=== PATIENT | male | born 1975 | race African-American/Black ===

== ENCOUNTER 2021-10-15 06:32 | Inpatient (IN) ==
--- NOTE | 2021-10-15 06:38 | Emergency Department Note ---
Impression & Plan COVID-19, Pneumonia, Acute dyspnea ED Provider Note NAME: JERAMY PARISH AGE: 46 SEX: M : 1975 ARRIVES VIA: Ambulance INFORMANT: [Patient][, ] ED PROVIDER(S): [Valentin Cordero MD] Chief Complaint: Shortness of breath HPI: Patient presents due to concern for shortness of breath. The patient was camping at the [facility]. The patient is currently undomiciled but had lived on [address] [place] [address] in [place] prior. Patient states that he does have a history of interstitial lung disease type 2 diabetes and hypertension. Remote history of a breast tissue surgery as well as ankle surgery but not recently. The patient has had productive cough and states there is scant blood in the sputum. No blood thinner use. Patient [place] any trauma. Patient does complain of chest pain that just began to the central chest that is nonradiating. Patient has noticed some leg swelling. Patient denies any history of heart failure. The patient is unsure as to the medications he takes. Patient denies any fevers or chills but did have a temp of 37.7 upon presentation. BLS reported that the patient was at 67% on room air. He was placed on a nonrebreather. ROS: See HPI for pertinent positives and negatives. A total of 10 systems were reviewed and otherwise negative. Past medical history: See below Surgical history: See below Social history: See below Physical Exam: GENERAL: NAD, non-toxic. EYE EXAM: Normal conjunctiva. PERRL, no anisocoria and EOM's grossly intact w/o pain. NECK: Supple, no nuchal rigidity, no adenopathy, non-tender. No signs of meningismus. FROM of the neck with good chin to chest and neck extension. No stridor. LUNGS: Crackles throughout. Tachypnea noted. HEART: Tachycardic and regular, no MRG. ABDOMEN: Abdomen soft, non-tender, normo-active bowel sounds, no masses, no rebound or guarding. BACK: No CVA TTP. SKIN: No rashes and no bruising. UPPER EXTREMITIES: Upper extremities are grossly normal. LOWER EXTREMITIES: Grossly normal, 2+ symmetric lower extremity edema bilaterally. NEURO EXAM: A&O x3, cranial nerves II-XII grossly intact, normal speech, moves all 4 extremities. Differential diagnoses: Reactive airway disease, pneumonia, pneumothorax, COPD, CHF, infections, cardiac ischemia, pulmonary embolism, musculoskeletal, gastrointestinal, as well as other pathologies. Course: Patient was seen and evaluated the bedside. Full history physical exam was p erformed. EKG interpreted by me Sinus tachycardia, rate 106, normal intervals, normal axis, no obvious ST elevations or T WI. Imaging Studies: See Below Cardiac monitoring: An order was placed for continuous cardiac monitoring. The monitor shows a rate of 102 with tachycardic and regular rhythm. MDM: Patient presented due to concern for shortness of breath in the setting of being undomiciled low-grade temperature with increased work of breathing. Blood work is obtained along with sepsis work-up. The patient may have an element of volume overload so the patient was not ordered IV fluids and was placed on BiPAP. The patient does look improved on the BiPAP. The patient was ordered an a dditional Xopenex treatment. The patient did receive empiric antibiotics as a precaution. White count of 12 with a normal H&H and platelet count. Kidney function was unremarkable with mild hypokalemia. The patient was ordered potassium for replacement. Mag is normal but patient's magnesium was also ordered. VBG does not show any acute hypercarbia. The patient's lactate is normal. Troponin and BNP are not elevated. The patient did appear slightly volume overloaded with possible volume congestion seen on initial chest x-ray. The patient did receive Nitropaste and Lasix. Patient is COVID-positive. The patient was ordered [address] shows no obvious PE. The patient does have dilatation of the central pulmonary arteries. Patient does have pronounced trunk you bronchial wall thickening. Patient does have moderate right lower lobe airspace opacity which favors a pneumonia. Patient also does have associated bronchiectasis. I did speak with the on-call hospitalist Dr. Jackson and the patient was admitted to the medicine service. I did also speak with the on-call lens and frames prescription clerk Dr. Correa. Patient was admitted to the medicine service. Critical Care: I have personally spent 95 minutes of critical care time in direct management of this patient. This includes bedside care, interpretation of diagnostic studies, and testing, discussion with consultants, patient, and family members, and other require inpatient management activities. This 95 minutes is in excess of all separately billable procedures. Past Med/Surg History Medical History DM2 (diabetes mellitus, type 2) H/O: HTN (hypertension) ILD (interstitial lung disease) Surgical History History of ankle surgery Social History Smoking Status: Current every day smoker Tobacco Type: Cigarettes Hx Alcohol Use: No Hx Substance Use: No Preferred Language: Portuguese Feels Safe at Home: Yes Home Meds Home Medications Medication Instructions Recorded Confirmed albuterol sulfate 90 mcg/actuation 2 inhalation PRN Wheezing 10/15/21 aerosol inhaler aripiprazole 10 mg tablet mg 10/15/21 atorvastatin 40 mg tablet 10 mg 10/15/21 chlorthalidone 50 mg tablet 50 mg 10/15/21 escitalopram oxalate 10 mg tablet 10 mg 10/15/21 fluticasone 250 mcg-salmeterol 50 inhalation 10/15/21 mcg/dose blistr powdr for inhalation pantoprazole 40 mg tablet,delayed 40 mg PO 10/15/21 release Results & Data (ED) Vital Signs Vital Signs - 24 hr 10/15/21 06:32 10/15/21 06:32 10/15/21 06:46 Temperature 37.7 C H Temperature Source Oral Pulse Rate 100 H Pulse Rate [Right Apical] Respiratory Rate 32 H Respiratory Effort / Characteristics Labored Labored Respiratory Depth Respiratory Pattern Blood Pressure 152/125 H Blood Pressure [Left Arm] Blood Pressure Mean 134 Blood Pressure Mean [Left Arm] Pulse Oximetry 95 95 Oxygen Delivery Method Room Air Room Air Non-rebreather Room Air Fraction of Inspired Oxygen Sepsis New/Unexplained Change in Mental Status N/A Sepsis Action Taken by Nursing No Action Required 10/15/21 06:54 10/15/21 06:56 10/15/21 07:28 Temperature Temperature Source Pulse Rate 100 H Pulse Rate [Right Apical] 100 H 102 H Respiratory Rate 27 H 27 H 26 H Respiratory Effort / Characteristics Spontaneous Short of Breath Spontaneous Spontaneous Short of Breath Respiratory Depth Normal Respiratory Pattern Tachypnea Blood Pressure Blood Pressure [Left Arm] Blood Pressure Mean Blood Pressure Mean [Left Arm] Pulse Oximetry 97 97 99 Oxygen Delivery Method BiPAP BiPAP Fraction of Inspired Oxygen 30 30 30 Sepsis New/Unexplained Change in Mental Status Sepsis Action Taken by Nursing 10/15/21 07:39 10/15/21 07:39 10/15/21 09:00 Temperature Temperature Source Pulse Rate Pulse Rate [Right Apical] 97 H 89 Respiratory Rate 18 16 Respiratory Effort / Characteristics Respiratory Depth Respiratory Pattern Blood Pressure Blood Pressure [Left Arm] 154/117 H 151/105 H Blood Pressure Mean Blood Pressure Mean [Left Arm] 129 120 Pulse Oximetry 98 97 Oxygen Delivery Method BiPAP BiPAP Fraction of Inspired Oxygen Sepsis New/Unexplained Change in Mental Status Sepsis Action Taken by Halfway Medications Current Medication List: was personally reviewed by me Laboratory Data Attestation: I reviewed the patient's lab results. Result diagrams: 10/15/21 06:10 10/15/21 06:10 Lab Results 10/15/21 10/15/21 10/15/21 Range/Units 06:10 06:10 06:10 WBC 12.12 H (4.8-10.8) K/ul RBC 5.03 (4.63-6.08) M/uL Hgb 14.6 (14.0-18.0) g/dl Hct 44.7 (40.1-51.0) % MCV 88.9 (80.0-100.0) fL MCH 29.0 (25.0-34.0) pg MCHC 32.7 (32.0-36.0) g/dL RDW Std Deviation 49.7 H (36.4-46.3) fL RDW Coeff of Brock 15.1 H (11.5-14.5) % Plt Count 234 (130-400) K/uL MPV 12.6 H (9.4-12.4) fL Immature Gran % (Auto) 0.4 % Neut % (Auto) 76.8 % Lymph % (Auto) 9.8 % [place] % (Auto) 11.6 % Eos % (Auto) 0.4 % Baso % (Auto) 1.0 % Neut # (Auto) 9.31 H (1.4-6.5) K/uL Lymph # (Auto) 1.19 L (1.2-3.4) K/uL [place] # (Auto) 1.40 H (0.24-0.82) K/uL Eos # (Auto) 0.05 (0-0.50) K/uL Baso # (Auto) 0.12 (0-0.2) K/uL Immature Gran # (Auto) 0.05 H (0.00-0.02) K/uL PT 11.8 (9.0-12.0) Seconds INR 1.1 (0.9-1.1) APTT 29.8 (21.0-31.0) Seconds PTT Ratio 1.1 VBG pH (7.36-7.41) VBG pCO2 (38-50) mmHg VBG pO2 mmHg VBG HCO3 mmol/L VBG O2 Saturation % VBG Base Excess mEq/L Sodium 135 L (136-145) mmol/L Potassium 3.3 L (3.5-5.1) mmol/L Chloride 101 (98-107) mmol/L Carbon Dioxide 26 (21-32) mmol/L Anion Gap 8 (3-11) BUN 9 (6-23) mg/dl Creatinine 1.09 (0.6-1.4) mg/dl Est Cr Clr Drug Dosing 99.9 ml/min Est GFR ( Amer) 93.8 ml/min Est GFR (Non-Af Amer) 81.0 ml/min BUN/Creatinine Ratio 8.3 L (10-20) Glucose 142 H (70-99(Fasting)) mg/dl Lactate (0.4-2.0) mmol/L Calcium 8.5 (8.5-10.1) mg/dl Magnesium 1.7 (1.7-2.4) mg/dl Total Bilirubin 0.6 (0.2-1.0) mg/dl AST 20 (13-39) U/L ALT 16 (7-52) U/L Alkaline Phosphatase 104 (34-104) U/L Troponin I High Sens 14.2 (0-20) pg/ml B-Natriuretic Peptide (0-100) pg/ml Total Protein 7.3 (6.0-8.3) gm/dl Albumin 3.9 (3.4-5.0) gm/dl Globulin 3.4 (2.5-4.0) gm/dl Albumin/Globulin Ratio 1.1 (0.9-2) Urine Color Urine Appearance (Clear) Urine pH (4.5-7.5) Ur Specific [place] (1.000-1.030) Urine Protein (Negative) Urine Glucose (UA) (Negative) Urine Ketones (Negative) Urine Blood (Negative) Urine Nitrite (Negative) Urine Bilirubin (Negative) Urine Urobilinogen (Negative) Ur Leukocyte Esterase (Negative) Urine WBC (Auto) (0-5) /hpf Urine RBC (Auto) (0-4) /hpf U Hyaline Cast (Auto) (0-5) /lpf U Epithel Cells (Auto) (0-5) /lpf Urine Bacteria (Auto) (Negative) Nasal Screen MRSA (PCR) (Negative) SARS-CoV-2, RNA, NAAT (NEGATIVE) 10/15/21 10/15/21 10/15/21 Range/Units 06:50 07:18 07:18 WBC (4.8-10.8) K/ul RBC (4.63-6.08) M/uL Hgb (14.0-18.0) g/dl Hct (40.1-51.0) % MCV (80.0-100.0) fL MCH (25.0-34.0) pg MCHC (32.0-36.0) g/dL RDW Std Deviation (36.4-46.3) fL RDW Coeff of Brock (11.5-14.5) % Plt Count (130-400) K/uL MPV (9.4-12.4) fL Immature Gran % (Auto) % Neut % (Auto) % Lymph % (Auto) % [place] % (Auto) % Eos % (Auto) % Baso % (Auto) % Neut # (Auto) (1.4-6.5) K/uL Lymph # (Auto) (1.2-3.4) K/uL [place] # (Auto) (0.24-0.82) K/uL Eos # (Auto) (0-0.50) K/uL Baso # (Auto) (0-0.2) K/uL Immature Gran # (Auto) (0.00-0.02) K/uL PT (9.0-12.0) Seconds INR (0.9-1.1) APTT (21.0-31.0) Seconds PTT Ratio VBG pH 7.40 (7.36-7.41) VBG pCO2 48 (38-50) mmHg VBG pO2 58 mmHg VBG HCO3 30 mmol/L VBG O2 Saturation 89.9 % VBG Base Excess 4.0 mEq/L Sodium (136-145) mmol/L Potassium (3.5-5.1) mmol/L Chloride (98-107) mmol/L Carbon Dioxide (21-32) mmol/L Anion Gap (3-11) BUN (6-23) mg/dl Creatinine (0.6-1.4) mg/dl Est Cr Clr Drug Dosing ml/min Est GFR ( Amer) ml/min Est GFR (Non-Af Amer) ml/min BUN/Creatinine Ratio (10-20) Glucose (70-99(Fasting)) mg/dl Lactate (0.4-2.0) mmol/L Calcium (8.5-10.1) mg/dl Magnesium (1.7-2.4) mg/dl Total Bilirubin (0.2-1.0) mg/dl AST (13-39) U/L ALT (7-52) U/L Alkaline Phosphatase (34-104) U/L Troponin I High Sens (0-20) pg/ml B-Natriuretic Peptide 85 (0-100) pg/ml Total Protein (6.0-8.3) gm/dl Albumin (3.4-5.0) gm/dl Globulin (2.5-4.0) gm/dl Albumin/Globulin Ratio (0.9-2) Urine Color Urine Appearance (Clear) Urine pH (4.5-7.5) Ur Specific [place] (1.000-1.030) Urine Protein (Negative) Urine Glucose (UA) (Negative) Urine Ketones (Negative) Urine Blood (Negative) Urine Nitrite (Negative) Urine Bilirubin (Negative) Urine Urobilinogen (Negative) Ur Leukocyte Esterase (Negative) Urine WBC (Auto) (0-5) /hpf Urine RBC (Auto) (0-4) /hpf U Hyaline Cast (Auto) (0-5) /lpf U Epithel Cells (Auto) (0-5) /lpf Urine Bacteria (Auto) (Negative) Nasal Screen MRSA (PCR) (Negative) SARS-CoV-2, RNA, NAAT POSITIVE A* (NEGATIVE) 10/15/21 10/15/21 10/15/21 Range/Units 07:18 07:30 Unknown WBC (4.8-10.8) K/ul RBC (4.63-6.08) M/uL Hgb (14.0-18.0) g/dl Hct (40.1-51.0) % MCV (80.0-100.0) fL MCH (25.0-34.0) pg MCHC (32.0-36.0) g/dL RDW Std Deviation (36.4-46.3) fL RDW Coeff of Brock (11.5-14.5) % Plt Count (130-400) K/uL MPV (9.4-12.4) fL Immature Gran % (Auto) % Neut % (Auto) % Lymph % (Auto) % [place] % (Auto) % Eos % (Auto) % Baso % (Auto) % Neut # (Auto) (1.4-6.5) K/uL Lymph # (Auto) (1.2-3.4) K/uL [place] # (Auto) (0.24-0.82) K/uL Eos # (Auto) (0-0.50) K/uL Baso # (Auto) (0-0.2) K/uL Immature Gran # (Auto) (0.00-0.02) K/uL PT (9.0-12.0) Seconds INR (0.9-1.1) APTT (21.0-31.0) Seconds PTT Ratio VBG pH (7.36-7.41) VBG pCO2 (38-50) mmHg VBG pO2 mmHg VBG HCO3 mmol/L VBG O2 Saturation % VBG Base Excess mEq/L Sodium (136-145) mmol/L Potassium (3.5-5.1) mmol/L Chloride (98-107) mmol/L Carbon Dioxide (21-32) mmol/L Anion Gap (3-11) BUN (6-23) mg/dl Creatinine (0.6-1.4) mg/dl Est Cr Clr Drug Dosing ml/min Est GFR ( Amer) ml/min Est GFR (Non-Af Amer) ml/min BUN/Creatinine Ratio (10-20) Glucose (70-99(Fasting)) mg/dl Lactate 0.7 (0.4-2.0) mmol/L Calcium (8.5-10.1) mg/dl Magnesium (1.7-2.4) mg/dl Total Bilirubin (0.2-1.0) mg/dl AST (13-39) U/L ALT (7-52) U/L Alkaline Phosphatase (34-104) U/L Troponin I High Sens (0-20) pg/ml B-Natriuretic Peptide (0-100) pg/ml Total Protein (6.0-8.3) gm/dl Albumin (3.4-5.0) gm/dl Globulin (2.5-4.0) gm/dl Albumin/Globulin Ratio (0.9-2) Urine Color Yellow Urine Appearance Clear (Clear) Urine pH 5.5 (4.5-7.5) Ur Specific [place] 1.022 (1.000-1.030) Urine Protein 2+ H (Negative) Urine Glucose (UA) Negative (Negative) Urine Ketones Negative (Negative) Urine Blood Negative (Negative) Urine Nitrite Negative (Negative) Urine Bilirubin Negative (Negative) Urine Urobilinogen Negative (Negative) Ur Leukocyte Esterase Negative (Negative) Urine WBC (Auto) 1-5 (0-5) /hpf Urine RBC (Auto) 0-4 (0-4) /hpf U Hyaline Cast (Auto) 1-5 (0-5) /lpf U Epithel Cells (Auto) 5-10 H (0-5) /lpf Urine Bacteria (Auto) Negative (Negative) Nasal Screen MRSA (PCR) Negative (Negative) SARS-CoV-2, RNA, NAAT (NEGATIVE) Administered Medications Nitroglycerin (Nitroglycerin 2% Ointment 30gm Tube) 1 inch EXT Q6H KASEY Stop: 11/14/21 07:29 Last Admin: 10/15/21 07:32 Dose: 1 inch Documented By: CAYDEN Discontinued Medications Dexamethasone Sodium Phosphate (DexamethasonePf 10 Mg/Ml Vial) 6 mg IV NOW ONE Stop: 10/15/21 08:14 Last Admin: 10/15/21 08:20 Dose: 6 mg Documented By: CAYDEN Furosemide (Furosemide 40 Mg/4 Ml Vial) 40 mg IV ONE ONE Stop: 10/15/21 07:36 Last Admin: 10/15/21 08:10 Dose: 40 mg Documented By: CAYDEN Cefepime HCl (Maxipime) 2,000 mg in 20 mls @ 5 mls/min IV NOW STA; Protocol Stop: 10/15/21 06:49 Last Admin: 10/15/21 07:23 Dose: 5 mls/min Documented By: CAYDEN Acetaminophen (Ofirmev) 1,000 mg in 100 mls @ 400 mls/hr IV NOW STA Stop: 10/15/21 07:04 Last Infusion: 10/15/21 08:00 Dose: 0 mls/hr Documented By: Admin: 10/15/21 07:23 Dose: 400 mls/hr Documented By: CAYDEN Potassium Chloride (K Lucas / Wtr) 10 meq in 100 mls @ 100 mls/hr IV Q1H KASEY; Protocol Stop: 10/15/21 09:44 Last Admin: 10/15/21 08:30 Dose: Not Given Documented By: CAYDEN Magnesium Sulfate/Dextrose (Magnesium Sulfate / D5w) 1 gm in 100 mls @ 100 mls/hr IV NOW STA Stop: 10/15/21 08:35 Last Admin: 10/15/21 08:10 Dose: 100 mls/hr Documented By: CAYDEN Ioversol (Optiray 300 500ml) 120 ml IV ONCE ONE Stop: 10/15/21 08:04 Last Admin: 10/15/21 08:03 Dose: 120 ml Documented By: ANASTACIA Levalbuterol HCl (Levalbuterol Hcl 1.25 Mg/3 Ml Neb) 1.25 mg NEB NOW STA; Protocol Stop: 10/15/21 06:44 Last Admin: 10/15/21 06:53 Dose: 1.25 mg Documented By: JENNIFER Levalbuterol HCl (Levalbuterol Hcl 1.25 Mg/3 Ml Neb) 1.25 mg NEB NOW STA; Protocol Stop: 10/15/21 07:26 Last Admin: 10/15/21 07:27 Dose: 1.25 mg Documented By: JENNIFER Potassium Chloride (Potassium Chloride Crtab 20 Meq Tabcr) 40 meq PO NOW STA Stop: 10/15/21 08:03 Last Admin: 10/15/21 08:20 Dose: 40 meq Documented By: CAYDEN Imaging Data Radiologist's Impression: Chest CTA 10/15/21 06:43 CT ANGIOGRAPHY OF THE CHEST, PULMONARY EMBOLUS PROTOCOL CLINICAL HISTORY: Dyspnea. COMPARISON STUDY: Chest radiograph performed earlier today. TECHNIQUE: Following IV administration of 120 mL of Optiray, helical axial images of the chest were obtained utilizing the pulmonary embolus protocol. Maximal intensity projections and sagittal and coronal reformats were viewed on an independent 3D workstation. IV contrast was administered without complication. Automated exposure control was utilized for the study. A dose lowering technique was utilized adhering to the principles of ALARA. CT DOSE: 998.47 mGy.cm FINDINGS: No pulmonary emboli are identified although this exam is significantly compromised by respiratory motion artifact and suboptimal opacification. The central pulmonary arteries are mildly dilated. There is dilatation of the right ventricle with mild leftward bowing of the interventricular septum. There is no pericardial effusion. There are multiple enlarged mediastinal and bilateral hilar lymph nodes. Index right paratracheal lymph node on axial image 261 of 308 measures 1.6 x 1.5 cm. Index right hilar node measures 2 x 1.4 cm. There are several mildly enlarged left supraclavicular lymph nodes. There is no pneumothorax. There is mild bilateral pleural thickening. Note is made of moderate tracheal wall thickening. There is pronounced bronchial wall thickening, most pronounced within the left lower lobe bronchus. Lungs are suboptimally assessed due to respiratory motion. Moderate right lower lobe airspace opacity favors pneumonia. No cavitation is present. There is an 8 mm left lower lobe nodule on image [id number]. Multifocal subpleural bronchiectasis is noted. There is a subpleural 2.2 cm opacity within the left lower lobe on image 188. No acute fracture or suspicious lesion within the visualized bony thorax. A 1.9 cm right adrenal nodule is noted. This is indeterminate but statistically benign. IMPRESSION: 1. No pulmonary emboli identified although exam significantly compromised by respiratory motion artifact and suboptimal opacification. 2. Dilatation of the central pulmonary arteries and the right ventricle with mild leftward bowing of the interventricular septum. This suggests pulmonary arterial hypertension/elevated right heart pressures. 3. Pronounced tracheobronchial wall thickening, greatest within the left lower lobe bronchus. This is nonspecific and could be inflammatory or infectious. Pulmonary consultation is recommended. 4. Mildly enlarged mediastinal and bilateral hilar lymph nodes. These lymph nodes are nonspecific and could be related to chronic lung disease. However, a follow-up chest CT in 3-6 months is recommended to exclude the less likely possibility of a neoplastic etiology. 5. Moderate right lower lobe airspace opacity which favors pneumonia, suboptimally assessed due to respiratory motion. This can be assessed on follow- up chest CT to ensure resolution. A 2.2 cm subpleural opacity within the superior segment of the left lower lobe can also be assessed on that exam. This favors scarring or a focus of pneumonia. Although within the differential, a neoplastic process is considered less likely. 6. Multifocal subpleural, upper lobe predominant bronchiectasis. This suggests chronic lung disease. ACT 112: Negative or not required by law. Electronically signed by: Delvin Peters M.D. 10/15/2021 8:29 AM Chest X-Ray 10/15/21 06:43 XR chest 1V portable CLINICAL HISTORY: Dyspnea COMPARISON STUDY: No previous studies for comparison. FINDINGS: Lung volumes are normal. There is no pneumothorax. Suspected trace bilateral pleural effusions are noted. There is mild interstitial thickening and mild bibasilar opacities, greater on the right. Cardiac size is within normal limits. Minimal right midlung opacity favors atelectasis. IMPRESSION: 1. Pulmonary vascular congestion with possible mild pulmonary edema. 2. Trace bilateral pleural effusions. 3. Lower lung opacities, greater on the right. The findings could reflect a superimposed infectious process or atelectasis. ACT 112: Negative or not required by law. Electronically signed by: Delvin Peters M.D. 10/15/2021 7:07 AM Discharge Plan Visit Data Chief Complaint: Shortness of Breath/Dyspnea ED Provider: Valentin Cordero Discharge Problem: COVID-19, Pneumonia, Acute dyspnea Patient Disposition: Admitted As Inpatient Discharge Instructions Interventions: ED Discharge Assessment Last Done: 10/15/21 09:58 Forms Stand Alone Forms: [employer] Prescriptions Prescriptions: No Action aripiprazole 10 mg tablet atorvastatin 40 mg tablet 10 mg fluticasone propion-salmeterol 250-50 mcg/dose blister with device INHALATION chlorthalidone 50 mg tablet 50 mg pantoprazole 40 mg tablet,delayed release (DR/EC) 40 mg PO albuterol sulfate 90 mcg/actuation HFA aerosol inhaler 2 INHALATION PRN (Reason: Wheezing) escitalopram oxalate 10 mg tablet 10 mg Referrals Referrals: PCP,NO [Physician] -
[2021-10-15] MEDS ORDERED: LEVALBUTEROL HCL 1.25 MG/3 ML NEB NEB STA ×2 (06:43→07:25)
[2021-10-15] MEDS ORDERED: CEFEPIME 2,000 MG/20 ML VIAL IV STA (06:46)
[2021-10-15] MEDS ORDERED: ACETAMINOPHEN 1,000 MG/100 ML VIAL IV STA (06:50)
--- NOTE | 2021-10-15 07:09 | XRay Report ---
XR chest 1V portable CLINICAL HISTORY: Dyspnea COMPARISON STUDY: No previous studies for comparison. FINDINGS: Lung volumes are normal. There is no pneumothorax. Suspected trace bilateral pleural effusi ons are noted. There is mild interstitial thickening and mild bibasilar opacities, greater on the rig ht. Cardiac size is within normal limits. Minimal right midlung opacity favors atelectasis. IMPRESSION: 1. Pulmonary vascular congestion with possible mild pulmonary edema. 2. Trace bilateral pleural effusions. 3. Lower lung opacities, greater on the right. The findings could reflect a superimposed infectious p rocess or atelectasis. ACT 112: Negative or not required by law. Electronically signed by: Delvin Peters M.D. 10/15/2021 7:07 AM
[2021-10-15 07:11] LABS: Basophils # (auto) 0.12 K/uL (0-0.2); Eosinophils # (auto) 0.05 K/uL (0-0.50); Eosinophils % (auto) 0.4 %; Hematocrit (blood only) 44.7 % (40.1-51.0); Hemoglobin 14.6 g/dl (14.0-18.0); Immature Granulocytes # (auto) 0.05 K/uL (0.00-0.02); Immature Granulocytes % (auto) 0.4 %; Lymphocytes # (auto) 1.19 K/uL (1.2-3.4); Lymphocytes % (auto) 9.8 %; Mean Corpuscular Hgb Conc 32.7 g/dL (32.0-36.0); Mean Corpuscular Volume 88.9 fL (80.0-100.0); Mean Platelet Volume 12.6 fL (9.4-12.4); Monocytes % (auto) 11.6 %; Neutrophils # (auto) 9.31 K/uL (1.4-6.5); Neutrophils % (auto) 76.8 %; Platelet Count 234 K/uL (130-400); RDW Coefficient of Variation 15.1 % (11.5-14.5); RDW Standard Deviation 49.7 fL (36.4-46.3); Red Blood Count 5.03 M/uL (4.63-6.08); White Blood Count 12.12 K/ul (4.8-10.8)
[2021-10-15 07:25] LABS: Albumin Globulin Ratio 1.1 (0.9-2); Albumin Level 3.9 gm/dl (3.4-5.0); BUN Creatinine Ratio 8.3 (10-20); Bilirubin,Total 0.6 mg/dl (0.2-1.0); Calcium 8.5 mg/dl (8.5-10.1); Creatinine Clr Calc Pharmacy 99.9 ml/min; Est GFR (African American) 93.8 ml/min; Globulin 3.4 gm/dl (2.5-4.0); Magnesium 1.7 mg/dl (1.7-2.4); Potassium 3.3 mmol/L (3.5-5.1); Total Protein 7.3 gm/dl (6.0-8.3)
[2021-10-15 07:29] LABS: Troponin I High Sensitivity 14.2 pg/ml (0-20)
[2021-10-15] MEDS: NITROGLYCERIN 2% OINTMENT 30GM TUBE EXT SCH ×3 (07:32→20:05)
[2021-10-15 07:35] LABS: INR 1.1 (0.9-1.1); Partial Thromboplastin Ratio 1.1; Partial Thromboplastin Time 29.8 Seconds (21.0-31.0); Prothrombin Time 11.8 Seconds (9.0-12.0)
[2021-10-15] MEDS ORDERED: FUROSEMIDE 40 MG/4 ML VIAL IV ONE (07:35)
[2021-10-15] MEDS ORDERED: MAGNESIUM SULFATE / D5W 1 GM/100 ML BAG IV STA (07:36)
[2021-10-15] MEDS ORDERED: POTASSIUM CHLORIDE / WTR 10 MEQ/100 ML PLCT IV SCH (07:45)
[2021-10-15 07:47] LABS: HCO3 VBG 30 mmol/L; Oxygen Saturation VBG 89.9 %; PCO2 VBG 48 mmHg (38-50); PO2 VBG 58 mmHg
[2021-10-15] MEDS ORDERED: POTASSIUM CHLORIDE CRTAB 20 MEQ TABCR PO STA (08:02)
[2021-10-15] MEDS ORDERED: OPTIRAY 300 500mL IV ONE (08:03)
[2021-10-15] MEDS ORDERED: dexAMETHasone**PF** 10 MG/ML VIAL IV ONE (08:13)
--- NOTE | 2021-10-15 08:31 | CT Scan Report ---
CT ANGIOGRAPHY OF THE CHEST, PULMONARY EMBOLUS PROTOCOL CLINICAL HISTORY: Dyspnea. COMPARISON STUDY: Chest radiograph performed earlier today. TECHNIQUE: Following IV administration of 120 mL of Optiray, helical axial images of the chest were o btained utilizing the pulmonary embolus protocol. Maximal intensity projections and sagittal and cor onal reformats were viewed on an independent 3D workstation. IV contrast was administered without co mplication. Automated exposure control was utilized for the study. A dose lowering technique was ut ilized adhering to the principles of ALARA. CT DOSE: 998.47 mGy.cm FINDINGS: No pulmonary emboli are identified although this exam is significantly compromised by resp iratory motion artifact and suboptimal opacification. The central pulmonary arteries are mildly dilat ed. There is dilatation of the right ventricle with mild leftward bowing of the interventricular sept um. There is no pericardial effusion. There are multiple enlarged mediastinal and bilateral hilar lym ph nodes. Index right paratracheal lymph node on axial image 261 of 308 measures 1.6 x 1.5 cm. Index right hilar node measures 2 x 1.4 cm. There are several mildly enlarged left supraclavicular lymph no luke. There is no pneumothorax. There is mild bilateral pleural thickening. Note is made of moderate t yoli wall thickening. There is pronounced bronchial wall thickening, most pronounced within the le ft lower lobe bronchus. Lungs are suboptimally assessed due to respiratory motion. Moderate right low er lobe airspace opacity favors pneumonia. No cavitation is present. There is an 8 mm left lower lobe nodule on image [id number]. Multifocal subpleural bronchiectasis is noted. There is a subpleural 2.2 cm opacity within the left lower lobe on image 188. No acute fracture or suspicious lesion within the v isualized bony thorax. A 1.9 cm right adrenal nodule is noted. This is indeterminate but statisticall y benign. IMPRESSION: 1. No pulmonary emboli identified although exam significantly compromised by respiratory motion artif act and suboptimal opacification. 2. Dilatation of the central pulmonary arteries and the right ventricle with mild leftward bowing of the interventricular septum. This suggests pulmonary arterial hypertension/elevated right heart press ures. 3. Pronounced tracheobronchial wall thickening, greatest within the left lower lobe bronchus. This is nonspecific and could be inflammatory or infectious. Pulmonary consultation is recommended. 4. Mildly enlarged mediastinal and bilateral hilar lymph nodes. These lymph nodes are nonspecific and could be related to chronic lung disease. However, a follow-up chest CT in 3-6 months is recommended to exclude the less likely possibility of a neoplastic etiology. 5. Moderate right lower lobe airspace opacity which favors pneumonia, suboptimally assessed due to re spiratory motion. This can be assessed on follow-up chest CT to ensure resolution. A 2.2 cm subpleura l opacity within the superior segment of the left lower lobe can also be assessed on that exam. This favors scarring or a focus of pneumonia. Although within the differential, a neoplastic process is co nsidered less likely. 6. Multifocal subpleural, upper lobe predominant bronchiectasis. This suggests chronic lung disease. ACT 112: Negative or not required by law. Electronically signed by: Delvin Peters M.D. 10/15/2021 8:29 AM
[2021-10-15 08:33] LABS: Appearance Urine Clear (Clear); Bacteria Urine Automated Negative (Negative); Bilirubin Urine Negative (Negative); Blood Urine Negative (Negative); Color Urine Yellow; Glucose Urine UA Negative (Negative); Ketones Urine Negative (Negative); Leukocyte Esterase Urine Negative (Negative); Nitrite Urine Negative (Negative); Protein Urine 2+ (Negative); RBC Urine Automated 0-4 /hpf (0-4); Specific Gravity Urine 1.022 (1.000-1.030); Urobilinogen Urine Negative (Negative); pH Urine 5.5 (4.5-7.5)
--- NOTE | 2021-10-15 09:39 | History & Physical Report ---
Date of Service October 15, 2021 Assessment & Plan (1) Pneumonia: Plan: Patient admitted to PCU. Patient will be on BIPAP. Likely multifactorial, reviewing imaging, appears he has underlying lung disease, pulmonary hypertension. Given his BMI of 40, he likely has DARREN. On Bipap, but FI02 is only 30. Will try to transition him to nasal cannula. will continue to monitor him. Treat for pneumonia in the meantime, if CRP is elevated will consider COVID treatment. Given elevated procal, will place on antibiotics. (2) Hypertension: Plan: will monitor. Patient is unsure of medications (3) Obesity: Plan: RECOMMEND LIFESTYLE CHANGES. Difficult given his current situation. (4) COVID-19: Plan: Patient is having hemoptysis, once he was on the floor. D/W pulm. Patient reports this is common when he gets sick. will place on decadron. (5) Acute dyspnea: Plan: as above. History of Present Illness Chief Complaint: SOB Primary Care Provider: VALERIANO ACOSTA This is a pleasant 46 yo male who is homeless, visiting for the [facility], presents to the hospital with COVID-19. He is unaware of his past medical history: but he did state he may be diabetic and have hypertension. He has been sick since Saturday. He reports difficulty breathing with activty rest and while he sleeps. This has gradually been worsening until he today where he was found to be in distress. EMT checked his oxygen levle and he was found to be hypoxic in the 60s O2 sat. Patient has a doctor that visits his homeless shleter and prescribes his medications. Patient reports he has not been vaccinated for COVID 19. Allergies Allergy/AdvReac Type Severity Reaction Status Date / Time No Known Allergies Allergy Unverified 10/15/21 10:46 Home Medications Medication Instructions Recorded Confirmed Type albuterol sulfate 90 mcg/actuation 2 inhalation PRN Wheezing 10/15/21 History aerosol inhaler aripiprazole 10 mg tablet mg 10/15/21 History atorvastatin 40 mg tablet 10 mg 10/15/21 History chlorthalidone 50 mg tablet 50 mg 10/15/21 History escitalopram oxalate 10 mg tablet 10 mg 10/15/21 History fluticasone 250 mcg-salmeterol 50 inhalation 10/15/21 History mcg/dose blistr powdr for inhalation pantoprazole 40 mg tablet,delayed 40 mg PO 10/15/21 History release Past Med/Surg History Medical History DM2 (diabetes mellitus, type 2) H/O: HTN (hypertension) ILD (interstitial lung disease) Surgical History History of ankle surgery Social History Smoking Status: Current every day smoker Tobacco Type: Cigarettes Second Hand Exposure: Yes; Do You Dip or Chew Tobacco: No; Hx Alcohol Use: Yes Alcohol type: beer and hard liquor Hx Substance Use: No Preferred Language: Rw[place] Communication Ability: Effective Evidence Technician Required: No Beliefs That Will Affect Care: None Current Living Situation Comment: homeless for one year Other Information That Helps Us Care for You: No Feels Safe at Home: Yes Safety Concerns: Feels Safe At This Time Assistive Devices: None Review of Systems Constitutional: + fatigue; no fever and no sweats Eyes: no blind spots Ear, Nose, Mouth, Throat: no ear pain and no tinnitus Respiratory: + cough and + dyspnea; no change in sputum Cardiovascular: no chest pain Gastrointestinal: no abdominal pain Genitourinary: no dysuria Musculoskeletal: no back pain Integumentary: no acne Neurologic: no gait abnormality Psychiatric: no behavioral changes Endocrine: no fatigue Hematologic / Lymphatic: no easy bleeding Allergy / Immunological: no GI upset with certain foods Physical Exam Constitutional: WD/WN, vitals as above (on BIPAP) Eyes: PERRL, conjunctivae normal, anicteric sclerae ENMT: external ear and nose normal, oropharynx normal Neck: trachea midline, no thyromegaly Respiratory: Auscultation: + diminished lung sounds and + wheezes Cardiovascular: RRR, no murmur, no edema Gastrointestinal (Abdomen): normal bowel sounds, soft, nontender, no hepatosplenomegaly Musculoskeletal: no cyanosis or clubbing, extremities motor strength 5/5 Skin: no rashes, warm and dry Neurologic: PERRL, EOMI, accommodation nl, no face palsy, no dysarthria Psychiatric: A+Ox3, euthymic affect Lymphatic: no cervical or axillary lymphadenopathy Results & Data Results & Data ([facility]) Vital Signs (Past 12 Hours) Vital Signs Temp Pulse Pulse Resp BP BP Pulse Ox 10/15/21 09:00 89 16 151/105 H 97 10/15/21 07:39 97 H 18 154/117 H 98 10/15/21 07:39 10/15/21 07:28 102 H 26 H 99 10/15/21 06:56 100 H 27 H 97 10/15/21 06:54 100 H 27 H 97 10/15/21 06:46 95 10/15/21 06:32 37.7 C H 100 H 32 H 152/125 H 95 10/15/21 06:32 O2 Del Method FiO2 10/15/21 09:00 BiPAP 10/15/21 07:39 10/15/21 07:39 BiPAP 10/15/21 07:28 BiPAP 30 10/15/21 06:56 BiPAP 30 10/15/21 06:54 30 10/15/21 06:46 Room Air 10/15/21 06:32 Room Air, Non-rebreather 10/15/21 06:32 Room Air PG Care Time/CCT Total # of Minutes Spent Total Time Spent with Patient: Total time spent is greater than 50% in coordination of care (as documented) at patient's floor/unit and/or counseling patient: Coding Level of Care Code 45066 Initial Inpt Care Lvl 3 Diagnoses Pneumonia J18.9 Hypertension I10 Obesity E66.9 COVID-19 U07.1 Acute dyspnea R06.00 Time Spent (min) 65
[2021-10-15 10:14] LABS: Base Excess ABG 3.2 mEq/L (-9-1.8); HCO3 ABG 29 mmol/L (19-24); Oxygen Saturation ABG 95.8 % (90-95); PCO2 ABG 45 mmHg (35-46); PO2 ABG 66 mmHg (80-95); pH ABG 7.41 (7.35-7.45)
[2021-10-15 10:15] LABS: Allen Test Pos (Pos)
[2021-10-15] MEDS ORDERED: Patient's ALLERGY Info needs ENTERED SCH (10:15)
[2021-10-15] MEDS ORDERED: ACETAMINOPHEN 325 MG TAB ONE (11:22)
[2021-10-15] MEDS ORDERED: ACETAMINOPHEN 325 MG TAB PO STA (11:24)
[2021-10-15] MEDS ORDERED: AZITHROMYCIN 500 MG in DEXTROSE 5% 250 ML IV ONE (11:30)
[2021-10-15] MEDS ORDERED: PNEUMOCOCCAL Polysaccharide Vaccine 25mcg/0.5mL vial/Syr IM ONE (13:30)
[2021-10-15] MEDS: CEFEPIME 2,000 MG in SYRINGE 0 ML IV SCH ×2 (14:24→21:32)
--- NOTE | 2021-10-15 16:12 | XCELERA ---
[id number]
--- NOTE | 2021-10-15 20:46 | Electrocardiogram Report ---
Test Reason : Blood Pressure : / mmHG Vent. Rate : 106 BPM Atrial Rate : 106 BPM P-R Int : 152 ms QRS Dur : 090 ms QT Int : 356 ms P-R-T Axes : 060 055 057 degrees QTc Int : 472 ms Sinus tachycardia Possible Left atrial enlargement Borderline ECG No previous ECGs available Confirmed by Bonilla Rodriguez ([id number]) on 10/15/2021 8:46:06 PM Referred By: REFERRED SELF Confirmed By:Bonilla Rodriguez
--- NOTE | 2021-10-15 21:28 | Hospitalist Progress Note ---
Date of Service October 15, 2021 Assessment & Plan (1) Hypertension: Plan: will monitor. Patient is unsure of medications (2) Obesity: (3) COVID-19: (4) Pneumonia: Plan: Patient admitted to PCU. Patient will be on BIPAP. Likely multifactorial, reviewing imaging, appears he has underlying lung disease, pulmonary hypertension. Given his BMI of 40, he likely has DARREN. On Bipap, but FI02 is only 30. Will try to transition him to nasal cannula. will continue to monitor him. Treat for pneumonia in the meantime, if CRP is elevated will consider COVID treatment. (5) Acute dyspnea: Admission and Anticipated Discharge Date Admission Date: October 15, 2021 Results & Data Results & Data ([facility]) Vital Signs (Past 12 Hours) Vital Signs Temp Pulse Pulse Resp BP Pulse Ox O2 Del Method 10/15/21 19:28 36.8 C 78 20 105/84 97 Nasal Cannula 10/15/21 16:11 36.3 C L 78 22 164/114 H 99 Room Air 10/15/21 15:38 83 10/15/21 12:39 Nasal Cannula 10/15/21 11:01 36.8 C 80 22 150/103 H 94 Nasal Cannula 10/15/21 10:56 36.8 C 80 22 150/103 H 94 Nasal Cannula O2 Flow Rate 10/15/21 19:28 2.0 10/15/21 16:11 10/15/21 15:38 10/15/21 12:39 3 10/15/21 11:01 2 10/15/21 10:56 4 PG Care Time/CCT Total # of Minutes Spent Total Time Spent with Patient: Total time spent is greater than 50% in coordination of care (as documented) at patient's floor/unit and/or counseling patient: Coding Diagnoses Hypertension I10 Obesity E66.9 COVID-19 U07.1 Pneumonia J18.9 Acute dyspnea R06.00
[2021-10-16] MEDS: NITROGLYCERIN 2% OINTMENT 30GM TUBE EXT SCH ×4 (01:30→21:23)
[2021-10-16] MEDS: CEFEPIME 2,000 MG in SYRINGE 0 ML IV SCH ×3 (05:35→21:32)
[2021-10-16 07:51] LABS: Estimated Average Glucose 163 mg/dl; Hemoglobin A1C 7.3 % (4.5-5.6)
[2021-10-16] MEDS ORDERED: dexAMETHasone 6 MG in SYRINGE 0 ML IV ONE (11:14)
[2021-10-16] MEDS: LEVALBUTEROL HCL 1.25 MG/3 ML NEB NEB SCH ×3 (13:18→23:54)
[2021-10-16 15:41] LABS: Hemoglobin 13.8 g/dl (14.0-18.0); Mean Corpuscular Hemoglobin 29.2 pg (25.0-34.0); Mean Corpuscular Hgb Conc 32.1 g/dL (32.0-36.0); Mean Corpuscular Volume 90.9 fL (80.0-100.0); Mean Platelet Volume 11.8 fL (9.4-12.4); Platelet Count 234 K/uL (130-400); RDW Coefficient of Variation 15.3 % (11.5-14.5); RDW Standard Deviation 51.3 fL (36.4-46.3); Red Blood Count 4.73 M/uL (4.63-6.08); White Blood Count 13.48 K/ul (4.8-10.8)
[2021-10-16 16:44] LABS: BUN Creatinine Ratio 17.9 (10-20); Calcium 8.6 mg/dl (8.5-10.1); Creatinine Clr Calc Pharmacy 88.4 ml/min; Est GFR (African American) 81.1 ml/min; Potassium 4.6 mmol/L (3.5-5.1)
[2021-10-16] MEDS ORDERED: PHARMACY GLYCEMIC MGMT CONSULT PRN (21:15)
--- NOTE | 2021-10-16 21:15 | Hospitalist Progress Note ---
Date of Service October 16, 2021 Assessment & Plan (1) Pneumonia: Plan: Patient admitted to PCU. Patient was initially on BIPAP, but this was transitioned to nasal cannula. Patient appears comofortable. Patient appears to have superimposed bacterial pneumonia given his elevated procal. Will continue with antibiotics: cefepime, azithromycin. Likely multifactorial, reviewing imaging, appears he has underlying lung disease, pulmonary hypertension. (2) Hypertension: Plan: BP has remained elevated, placed on nitro will monitor. (3) Obesity: Plan: RECOMMEND LIFESTYLE CHANGES. Difficult given his current situation. (4) COVID-19: Plan: Patient is having hemoptysis, once he was on the floor. D/W pulm. Patient reports this is common when he gets sick. will place on decadron. (5) Acute dyspnea: Plan: as above. Admission and Anticipated Discharge Date Admission Date: October 15, 2021 Subjective Patient reports being comfortable on 2-4 liters nasal cannula. He has no new symptoms at this time. Continues to have a cough, with scant amount of blood. He reports yesterday he had about 3 tablespoons of hemoptysis. Review of Systems Review of Systems: All systems reviewed & are unremarkable except as noted in HPI & below Physical Exam Constitutional: WD/WN, vitals as above (on BIPAP) Eyes: PERRL, conjunctivae normal, anicteric sclerae ENMT: external ear and nose normal, oropharynx normal Neck: trachea midline, no thyromegaly Respiratory: normal respiratory effort, lungs clear to auscultation Auscultation: + diminished lung sounds and + wheezes Cardiovascular: RRR, no murmur, no edema Gastrointestinal (Abdomen): normal bowel sounds, soft, nontender, no hepatosplenomegaly Musculoskeletal: no cyanosis or clubbing, extremities motor strength 5/5 Skin: no rashes, warm and dry Neurologic: PERRL, EOMI, accommodation nl, no face palsy, no dysarthria Psychiatric: A+Ox3, euthymic affect Lymphatic: no cervical or axillary lymphadenopathy Results & Data Results & Data ([facility]) Vital Signs (Past 12 Hours) Vital Signs Temp Pulse Pulse Resp BP Pulse Ox Pulse Ox 10/16/21 19:20 58 L 18 96 10/16/21 19:14 36.8 C 60 20 143/91 H 97 10/16/21 16:20 67 10/16/21 15:03 36.6 C 65 20 140/94 95 10/16/21 13:19 61 22 99 10/16/21 10:53 36.6 C 69 24 150/99 H 99 10/16/21 09:33 10/16/21 09:21 98 O2 Del Method O2 Del Method O2 Flow Rate O2 Flow Rate 10/16/21 19:20 Nasal Cannula 4 10/16/21 19:14 Nasal Cannula 2 10/16/21 16:20 10/16/21 15:03 Nasal Cannula 4 10/16/21 13:19 Nasal Cannula 2 10/16/21 10:53 Nasal Cannula 4.0 10/16/21 09:33 Nasal Cannula 4 10/16/21 09:21 Nasal Cannula 4 PG Care Time/CCT Total # of Minutes Spent Total Time Spent with Patient: Total time spent is greater than 50% in coordination of care (as documented) at patient's floor/unit and/or counseling patient: Coding Level of Care Code 00891 Subseq Hosp Care Lvl 3 Diagnoses Pneumonia J18.9 Hypertension I10 Obesity E66.9 COVID-19 U07.1 Acute dyspnea R06.00 Time Spent (min) 35
[2021-10-16] MEDS ORDERED: GLUCOSE 40% GEL 15 GM TUBE PO PRN (21:45)
[2021-10-16] MEDS ORDERED: CARBOHYDRATES FOR HYPOGLYCEMIA PO PRN (21:45)
[2021-10-16] MEDS ORDERED: DEXTROSE 50% 50 ML SYRINGE IV PRN (21:45)
[2021-10-16] MEDS ORDERED: GLUCAGON FOR INJ 1 MG VIAL SQ PRN (21:45)
[2021-10-16] MEDS ORDERED: GLUCOSE 10 TAB/TUBE PO PRN (21:45)
[2021-10-16] MEDS: INSULIN ASPART PER UNIT SC SCH (23:14)
[2021-10-17] MEDS: NITROGLYCERIN 2% OINTMENT 30GM TUBE EXT SCH ×4 (02:32→20:29)
[2021-10-17] MEDS: LEVALBUTEROL HCL 1.25 MG/3 ML NEB NEB SCH ×3 (07:06→19:34)
[2021-10-17] MEDS: CEFEPIME 2,000 MG in SYRINGE 0 ML IV SCH ×3 (07:32→20:58)
[2021-10-17] MEDS: INSULIN ASPART PER UNIT SC SCH ×4 (08:52→20:39)
[2021-10-17] MEDS: CHLORTHALIDONE 25 MG TAB PO SCH (09:19)
[2021-10-17] MEDS: ARIPiprazole 10 MG TAB PO SCH (09:19)
[2021-10-17] MEDS: FLUTICASONE/VILANTEROL 200/25MCG 14 PUFFS/INHALER INH SCH (09:20)
[2021-10-17] MEDS: ENOXAPARIN INJ 40 MG/0.4 ML SYR SQ SCH (09:20)
[2021-10-17] MEDS: PANTOprazole 40 MG TAB PO SCH (09:21)
[2021-10-17] MEDS: lisinopril 10 MG TAB PO SCH (09:21)
[2021-10-17] MEDS ORDERED: amLODIPine BESYLATE 5 MG TAB PO ONE (11:40)
[2021-10-17] MEDS: AZITHROMYCIN 250 MG TAB PO SCH (12:17)
[2021-10-17 14:02] LABS: Quantiferon NIL 0.04 IU/mL; Quantiferon TB Gold Plus NEGATIVE (NEGATIVE); Quantiferon TB1-NIL <0.00 IU/mL; Quantiferon TB2-NIL 0.01 IU/mL
--- NOTE | 2021-10-17 14:10 | Pharmacy Report ---
Pharmacy Glycemic Short Note 2 - Date of Service October 17, 2021 - Glycemic Short BSG Results (Last 24 hours): 10/16/21 10/16/21 10/16/21 15:31 16:31 20:19 Glucose 110 H POC Glucose 171 H 179 H 10/17/21 10/17/21 07:40 11:34 Glucose POC Glucose 132 H 139 H OUTPATIENT ANTIDIABETIC REGIMEN: * Diabetes pill unknown name * HbA1C = 7.3% (10/15/21) ASSESSMENT: * Mr Lamas is a 46 y/o M with a PMH of T2DM who presents with COVID and respiratory failure. * Patient received a dose of dexamethasone 6 mg yesterday. * BSGs yesterday were [phone] mg/dL. * BSGs today are 132-139 mg/dL. * Currently patient is on Novolog weight-based stress 1-2. Continue to hold basal since fasting within range. PLAN FOR INPATIENT GLYCEMIC CONTROL: * Basal insulin * HOLD * Bolus insulin * NovoLog per scale ACHS or Q6hrs while NPO * Goal Range: Low 110 mg/dL - High 140 mg/dL * Correction Factor: 30 mg/dL/unit * Nutritional / Prandial insulin per carb ratio of 1 unit per 10 grams CHO consumed
--- NOTE | 2021-10-17 18:26 | Hospitalist Progress Note ---
Date of Service October 17, 2021 Assessment & Plan (1) Pneumonia: Plan: Patient admitted to PCU. Patient was initially on BIPAP, but this was transitioned to nasal cannula. Patient appears comofortable. Patient appears to have superimposed bacterial pneumonia given his elevated procal. Will continue with antibiotics: cefepime, azithromycin. Likely multifactorial, reviewing imaging, appears he has underlying lung disease, pulmonary hypertension. Patient appears to be slowly improving. Patient is hoping to be ready for discharge on . But he is still on oxygen, hoping he improves. (2) Hypertension: Plan: BP has remained elevated, placed on nitro will monitor. (3) Obesity: Plan: RECOMMEND LIFESTYLE CHANGES. Difficult given his current situation. (4) COVID-19: Plan: Patient is having hemoptysis, once he was on the floor. D/W pulm. Patient reports this is common when he gets sick. will place on decadron. (5) Acute dyspnea: Plan: as above. Admission and Anticipated Discharge Date Admission Date: October 15, 2021 Subjective Patient reports mildly feeling better. He has no new complaints, feels less SOB. Review of Systems Review of Systems: All systems reviewed & are unremarkable except as noted in HPI & below Physical Exam Constitutional: WD/WN, vitals as above (on nasal cannula) Eyes: PERRL, conjunctivae normal, anicteric sclerae ENMT: external ear and nose normal, oropharynx normal Neck: trachea midline, no thyromegaly Respiratory: normal respiratory effort, lungs clear to auscultation Auscultation: + diminished lung sounds and + wheezes Cardiovascular: RRR, no murmur, no edema Gastrointestinal (Abdomen): normal bowel sounds, soft, nontender, no hepatosplenomegaly Musculoskeletal: no cyanosis or clubbing, extremities motor strength 5/5 Skin: no rashes, warm and dry Neurologic: PERRL, EOMI, accommodation nl, no face palsy, no dysarthria Psychiatric: A+Ox3, euthymic affect Lymphatic: no cervical or axillary lymphadenopathy Results & Data Results & Data ([facility]) Vital Signs (Past 12 Hours) Vital Signs Temp Pulse Pulse Resp BP BP Pulse Ox 10/17/21 17:04 68 10/17/21 16:41 37 C 80 18 148/88 H 100 10/17/21 14:11 149/92 H 10/17/21 13:13 75 18 96 10/17/21 12:16 172/122 H 10/17/21 11:30 36.9 C 20 180/124 H 171/122 H 96 10/17/21 09:08 45 L 10/17/21 07:48 10/17/21 07:30 36.9 C 65 22 194/136 H 188/135 H 95 10/17/21 07:07 56 L 18 98 O2 Del Method O2 Flow Rate 10/17/21 17:04 10/17/21 16:41 Nasal Cannula 4 10/17/21 14:11 10/17/21 13:13 Nasal Cannula 2 10/17/21 12:16 10/17/21 11:30 Nasal Cannula 2 10/17/21 09:08 10/17/21 07:48 Nasal Cannula 4 10/17/21 07:30 Nasal Cannula 10/17/21 07:07 Nasal Cannula 2 PG Care Time/CCT Total # of Minutes Spent Total Time Spent with Patient: Total time spent is greater than 50% in coordination of care (as documented) at patient's floor/unit and/or counseling patient: Coding Level of Care Code 61457 Subseq Hosp Care Lvl 2 Diagnoses Pneumonia J18.9 Hypertension I10 Obesity E66.9 COVID-19 U07.1 Acute dyspnea R06.00
[2021-10-17] MEDS: ATORVASTATIN 40 MG TAB PO SCH (20:29)
[2021-10-17] MEDS ORDERED: LEVALBUTEROL HCL 1.25 MG/3 ML NEB NEB PRN (20:37)
[2021-10-18] MEDS: NITROGLYCERIN 2% OINTMENT 30GM TUBE EXT SCH ×4 (01:39→18:29)
[2021-10-18] MEDS: CEFEPIME 2,000 MG in SYRINGE 0 ML IV SCH ×3 (05:40→21:36)
[2021-10-18 06:48] LABS: Basophils % (auto) 0.8 %; Eosinophils # (auto) 0.09 K/uL (0-0.50); Eosinophils % (auto) 0.8 %; Hematocrit (blood only) 42.2 % (40.1-51.0); Hemoglobin 13.2 g/dl (14.0-18.0); Immature Granulocytes # (auto) 0.07 K/uL (0.00-0.02); Immature Granulocytes % (auto) 0.6 %; Lymphocytes # (auto) 3.36 K/uL (1.2-3.4); Lymphocytes % (auto) 28.2 %; Mean Corpuscular Hemoglobin 28.5 pg (25.0-34.0); Mean Corpuscular Hgb Conc 31.3 g/dL (32.0-36.0); Mean Corpuscular Volume 91.1 fL (80.0-100.0); Mean Platelet Volume 12.2 fL (9.4-12.4); Monocytes # (auto) 0.99 K/uL (0.24-0.82); Monocytes % (auto) 8.3 %; Neutrophils # (auto) 7.29 K/uL (1.4-6.5); Neutrophils % (auto) 61.3 %; Platelet Count 267 K/uL (130-400); RDW Standard Deviation 50.4 fL (36.4-46.3); Red Blood Count 4.63 M/uL (4.63-6.08)
[2021-10-18] MEDS: LEVALBUTEROL HCL 1.25 MG/3 ML NEB NEB SCH ×4 (07:06→19:34)
[2021-10-18 07:46] LABS: Albumin Globulin Ratio 1.1 (0.9-2); Albumin Level 3.4 gm/dl (3.4-5.0); BUN Creatinine Ratio 17.4 (10-20); Bilirubin,Total 0.6 mg/dl (0.2-1.0); Calcium 8.6 mg/dl (8.5-10.1); Creatinine Clr Calc Pharmacy 119.2 ml/min; Est GFR (African American) 115.2 ml/min; Est GFR (Non-African American) 99.4 ml/min; Globulin 3.2 gm/dl (2.5-4.0); Potassium 3.6 mmol/L (3.5-5.1); Total Protein 6.6 gm/dl (6.0-8.3)
[2021-10-18] MEDS: PANTOprazole 40 MG TAB PO SCH (08:42)
[2021-10-18] MEDS: FLUTICASONE/VILANTEROL 200/25MCG 14 PUFFS/INHALER INH SCH (08:42)
[2021-10-18] MEDS: AZITHROMYCIN 250 MG TAB PO SCH (08:42)
[2021-10-18] MEDS: CHLORTHALIDONE 25 MG TAB PO SCH (08:42)
[2021-10-18] MEDS: lisinopril 10 MG TAB PO SCH (08:42)
[2021-10-18] MEDS: ENOXAPARIN INJ 40 MG/0.4 ML SYR SQ SCH (08:42)
[2021-10-18] MEDS: ARIPiprazole 10 MG TAB PO SCH (08:42)
[2021-10-18] MEDS: INSULIN ASPART PER UNIT SC SCH ×4 (09:07→21:25)
[2021-10-18] MEDS: ATORVASTATIN 40 MG TAB PO SCH (21:56)
--- NOTE | 2021-10-18 22:56 | Hospitalist Progress Note ---
Date of Service October 18, 2021 Assessment & Plan (1) Pneumonia: Plan: COVID-19 pneumonia and(/or) superimposed bacterial pneumonia Acute hypoxic respiratory failure Patient admitted to PCU. Patient was initially on BIPAP, but this was transitioned to nasal cannula. Patient appears comofortable. Patient appears to have superimposed bacterial pneumonia given his elevated procal. Will continue with antibiotics: cefepime, azithromycin. Likely multifactorial, reviewing imaging, appears he has underlying lung disease, pulmonary hypertension. Patient appears to be slowly improving. Patient is hoping to be ready for discharge on . Patient transitioned to room air. He has been ambulating in his room. (2) Hypertension: Plan: BP has remained elevated, placed on nitro will monitor. (3) Obesity: Plan: RECOMMEND LIFESTYLE CHANGES. Difficult given his current situation. (4) COVID-19: Plan: Patient is having hemoptysis, once he was on the floor. D/W pulm. Patient reports this is common when he gets sick. will place on decadron. will need to complete 10 days of decadron (5) Acute dyspnea: Plan: as above. Admission and Anticipated Discharge Date Admission Date: October 15, 2021 Subjective 46 yo male reports feeling better. He is coughing less, and is breathing better. He is tolerating room air, and is ambulating from the bed to the bathroom. Review of Systems Review of Systems: All systems reviewed & are unremarkable except as noted in HPI & below Physical Exam Constitutional: WD/WN, vitals as above (on nasal cannula) Eyes: PERRL, conjunctivae normal, anicteric sclerae ENMT: external ear and nose normal, oropharynx normal Neck: trachea midline, no thyromegaly Respiratory: normal respiratory effort, lungs clear to auscultation Auscultation: + diminished lung sounds and + wheezes Cardiovascular: RRR, no murmur, no edema Gastrointestinal (Abdomen): normal bowel sounds, soft, nontender, no hepatosplenomegaly Musculoskeletal: no cyanosis or clubbing, extremities motor strength 5/5 Skin: no rashes, warm and dry Neurologic: PERRL, EOMI, accommodation nl, no face palsy, no dysarthria Psychiatric: A+Ox3, euthymic affect Lymphatic: no cervical or axillary lymphadenopathy Results & Data Results & Data ([facility]) Vital Signs (Past 12 Hours) Vital Signs Temp Pulse Pulse Resp BP BP Pulse Ox 10/18/21 22:30 82 23 99 10/18/21 19:34 97 H 20 93 10/18/21 19:18 37.2 C 91 H 20 126/82 95 10/18/21 16:49 37.2 C 75 18 157/104 H 95 10/18/21 16:49 37.2 C 75 18 157/104 H 95 10/18/21 14:18 77 10/18/21 15:20 69 20 95 10/18/21 11:56 37.5 C 74 143/92 H 94 10/18/21 11:19 68 20 93 O2 Del Method FiO2 10/18/21 22:30 30 10/18/21 19:34 Room Air 10/18/21 19:18 Room Air 10/18/21 16:49 Room Air 10/18/21 16:49 10/18/21 14:18 10/18/21 15:20 Room Air 10/18/21 11:56 Room Air 10/18/21 11:19 Room Air PG Care Time/CCT Total # of Minutes Spent Total Time Spent with Patient: Total time spent is greater than 50% in coordination of care (as documented) at patient's floor/unit and/or counseling patient: Coding Level of Care Code 03733 Subseq Hosp Care Lvl 3 Diagnoses Pneumonia J18.9 Hypertension I10 Obesity E66.9 COVID-19 U07.1 Acute dyspnea R06.00 Time Spent (min) 35
[2021-10-19] MEDS ORDERED: CEFDINIR 300 MG CAP PO SCH
[2021-10-19] MEDS: NITROGLYCERIN 2% OINTMENT 30GM TUBE EXT SCH ×2 (01:48→07:56)
[2021-10-19] MEDS: CEFEPIME 2,000 MG in SYRINGE 0 ML IV SCH ×2 (06:02→13:04)
[2021-10-19] MEDS: LEVALBUTEROL HCL 1.25 MG/3 ML NEB NEB SCH ×2 (07:04→11:17)
[2021-10-19] MEDS: INSULIN ASPART PER UNIT SC SCH ×2 (07:56→11:48)
[2021-10-19] MEDS: FLUTICASONE/VILANTEROL 200/25MCG 14 PUFFS/INHALER INH SCH (08:04)
[2021-10-19] MEDS: CHLORTHALIDONE 25 MG TAB PO SCH (08:05)
[2021-10-19] MEDS: ENOXAPARIN INJ 40 MG/0.4 ML SYR SQ SCH (08:05)
[2021-10-19] MEDS: AZITHROMYCIN 250 MG TAB PO SCH (08:05)
[2021-10-19] MEDS: PANTOprazole 40 MG TAB PO SCH (08:05)
[2021-10-19] MEDS: ARIPiprazole 10 MG TAB PO SCH (08:05)
[2021-10-19] MEDS: lisinopril 10 MG TAB PO SCH (08:05)
[2021-10-19] MEDS ORDERED: lisinopril 10 MG TAB PO ONE (08:30)
--- NOTE | 2021-10-19 12:58 | Discharge Summary ---
Date of Service October 19, 2021 Admission HPI Per Admitting Provider This is a pleasant 46 yo male who is homeless, visiting for the [facility], presents to the hospital with COVID-19. He is unaware of his past medical history: but he did state he may be diabetic and have hypertension. He has been sick since Saturday. He reports difficulty breathing with activty rest and while he sleeps. This has gradually been worsening until he today where he was found to be in distress. EMT checked his oxygen levle and he was found to be hypoxic in the 60s O2 sat. Patient has a doctor that visits his homeless shleter and prescribes his medications. Patient reports he has not been vaccinated for COVID 19. Principal Diagnosis 1. Acute hypoxic respiratory failure 2. COVID-19 Pneumonia 3. Uncontrolled HTN Discharge Exam GENERAL: 46 yo Well-developed, well-nourished M. NAD. LUNGS: Clear to auscultation bilaterally. No W/R/R. CARDIOVASCULAR: Regular rate and rhythm. No M/G/R. No JVD. ABDOMEN: Soft, non-tender and non-distended. BS normoactive x 4 quad. EXTREMITIES: No edema. Non-tender. Peripheral pulses +2/4. NEUROLOGIC: A&O x3. Nonfocal PSYCHIATRIC: Cooperative. Appropriate mood and affect. SKIN: Warm, dry, intact. No rashes or lesions. Discharge Data Allergies Allergy/AdvReac Type Severity Reaction Status Date / Time No Known Allergies Allergy Unverified 10/15/21 10:46 Consultations 10/15/21 08:30 ED Decision to Admit Stat Ordered Studies Chest CTA 10/15/21 06:43 CT ANGIOGRAPHY OF THE CHEST, PULMONARY EMBOLUS PROTOCOL CLINICAL HISTORY: Dyspnea. COMPARISON STUDY: Chest radiograph performed earlier today. TECHNIQUE: Following IV administration of 120 mL of Optiray, helical axial images of the chest were obtained utilizing the pulmonary embolus protocol. Maximal intensity projections and sagittal and coronal reformats were viewed on an independent 3D workstation. IV contrast was administered without complicatio n. Automated exposure control was utilized for the study. A dose lowering technique was utilized adhering to the principles of ALARA. CT DOSE: 998.47 mGy.cm FINDINGS: No pulmonary emboli are identified although this exam is significantly compromised by respiratory motion artifact and suboptimal opacification. The central pulmonary arteries are mildly dilated. There is dilatation of the right ventricle with mild leftward bowing of the interventricular septum. There is no pericardial effusion. There are multiple enlarged mediastinal and bilateral hilar lymph nodes. Index right paratracheal lymph node on axial image 261 of [id number] measures 1.6 x 1.5 cm. Index right hilar node measures 2 x 1.4 cm. There are several mildly enlarged left supraclavicular lymph nodes. There is no pneumothorax. There is mild bilateral pleural thickening. Note is made of moderate tracheal wall thickening. There is pronounced bronchial wall thickening, most pronounced within the left lower lobe bronchus. Lungs are suboptimally assessed due to respiratory motion. Moderate right lower lobe airspace opacity favors pneumonia. No cavitation is present. There is an 8 mm left lower lobe nodule on image [id number]. Multifocal subpleural bronchiectasis is noted. There is a subpleural 2.2 cm opacity within the left lower lobe on image 188. No acute fracture or suspicious lesion within the visualized bony thorax. A 1.9 cm right adrenal nodule is noted. This is indeterminate but statistically benign. IMPRESSION: 1. No pulmonary emboli identified although exam significantly compromised by respiratory motion artifact and suboptimal opacification. 2. Dilatation of the central pulmonary arteries and the right ventricle with mild leftward bowing of the interventricular septum. This suggests pulmonary a rterial hypertension/elevated right heart pressures. 3. Pronounced tracheobronchial wall thickening, greatest within the left lower lobe bronchus. This is nonspecific and could be inflammatory or infectious. Pulmonary consultation is recommended. 4. Mildly enlarged mediastinal and bilateral hilar lymph nodes. These lymph nodes are nonspecific and could be related to chronic lung disease. However, a follow-up chest CT in 3-6 months is recommended to exclude the less likely possibility of a neoplastic etiology. 5. Moderate right lower lobe airspace opacity which favors pneumonia, suboptima lly assessed due to respiratory motion. This can be assessed on follow-up chest CT to ensure resolution. A 2.2 cm subpleural opacity within the superior segment of the left lower lobe can also be assessed on that exam. This favors scarring or a focus of pneumonia. Although within the differential, a neoplastic process is considered less likely. 6. Multifocal subpleural, upper lobe predominant bronchiectasis. This suggests chronic lung disease. ACT 112: Negative or not required by law. Electronically signed by: Delvin Peters M.D. 10/15/2021 8:29 AM Chest X-Ray 10/15/21 06:43 XR chest 1V portable CLINICAL HISTORY: Dyspnea COMPARISON STUDY: No previous studies for comparison. FINDINGS: Lung volumes are normal. There is no pneumothorax. Suspected trace bilateral pleural effusions are noted. There is mild interstitial thickening and mild bibasilar opacities, greater on the right. Cardiac size is within normal limits. Minimal right midlung opacity favors atelectasis. IMPRESSION: 1. Pulmonary vascular congestion with possible mild pulmonary edema. 2. Trace bilateral pleural effusions. 3. Lower lung opacities, greater on the right. The findings could reflect a superimposed infectious process or atelectasis. ACT 112: Negative or not required by law. Electronically signed by: Delvin Peters M.D. 10/15/2021 7:07 AM Hospital Course (1) Pneumonia: COVID-19 pneumonia and(/or) superimposed bacterial pneumonia w/ Acute hypoxic respiratory failure Patient admitted to PCU. Patient was initially on BIPAP, but this was transitioned to nasal cannula. Patient appears comfortable. Patient appears to have superimposed bacterial pneumonia given his elevated procal. Will continue with antibiotics: cefepime, azithromycin. Likely multifactorial, reviewing imaging, appears he has underlying lung disease, pulmonary hypertension. Patient appears to be slowly improving. Patient is hoping to be ready for discharge on . Patient transitioned to room air. He has been ambulating in his room. Ambulatory pulse ox completed by RN on 10/19, did not desaturate below 91% with ambulation Will plan to d/c home with one more day of antibiotic therapy to complete a total of 5 days--given home pack of Cefdinir 300mg BID x3 doses (2) Hypertension: BP has remained elevated, placed on nitro started on Lisinopril 10mg with some improvement, still some elevated readings Lisinopril increased to 20mg 10/19, will plan to d/c home with this (3) Obesity: RECOMMEND LIFESTYLE CHANGES. Difficult given his current situation. (4) COVID-19: Patient is having hemoptysis, once he was on the floor. D/W pulm. Patient reports this is common when he gets sick. was treated with Decadron during his stay. No indication to continue given he is now on room air and lungs are clear. (5) Acute dyspnea: as above. Plan Patient is medically and hemodynamically stable for discharge home. Recommend f/u with pcp within 1 week of discharge. Plan of care d/w Dr. Lance who has also seen and evaluated this patient prior to discharge and agrees with aforementioned. Total Time Total Time Spent Total Time Spent (In Minutes): >30 minutes Discharge Plan Discharge Items Patient Disposition: Home - Self-Care Reason For Visit: ACUTE RESP FAILURE Discharge Diagnosis: covid pneumonia low oxygen levels Activity: Resume your previous activity Non-emergency contact: Primary Care Provider Call non-emergency contact if: you have any medication questions and your symptoms worsen Follow-up/Referrals: DEL CASTORENA [Other] Diet: Heart Healthy Addtl Attending Provider Instructions: You were hospitalized with covid-19 and low oxygen levels. Your work up demonstrated that you had evidence of pneumonia. You were started on treatment including steroids, breathing treatments, oxygen, and antibiotics. You have responded well to treatment and your oxygen levels have normalized. You were noted to have some elevated blood pressure readings during your stay so you were started on Lisinopril which is a blood pressure medicine. You will continue taking this in addition to Chlorthalidone. You will be given one more dose of antibiotics that you will need called Cefdinir. You will be due for your first dose this evening (10/19) before bed. Then you will take one capsule tomorrow morning and one tomorrow evening and then you will be done. Please take all three pills as directed. It will be important upon your discharge to follow up with your established healthcare provider. Please do so within 1 week of discharge. If you have any questions/concerns after you are discharged from the hospital, [facility]. In the event of a medical emergency, call 911. Pending Studies at Discharge: No Stand-Alone Forms: My [employer], Smoking Cessation Medications and DC Order Prescriptions: New lisinopril 20 mg Tablet 20 mg PO QAM Qty: 30 0RF Continued aripiprazole 10 mg tablet atorvastatin 40 mg tablet 10 mg fluticasone propion-salmeterol 250-50 mcg/dose blister with device INHALATION chlorthalidone 50 mg tablet 50 mg pantoprazole 40 mg tablet,delayed release (DR/EC) 40 mg PO albuterol sulfate 90 mcg/actuation HFA aerosol inhaler 2 INHALATION PRN (Reason: Wheezing) escitalopram oxalate 10 mg tablet 10 mg Discharge Orders: Discharge Order (Routine); Ordered 10/19/21 Ordered By: Isabell Aj/Other Patient Handouts: High Blood Sugar (Hyperglycemia), Hypoglycemia (Low Blood Sugar), Managing Type 2 Diabetes, Diabetes: Meal Planning Admission Data Admit Date/Time: 10/15/21 09:30 Attending Provider: Kuldip Lance Admit Provider: Kj Jackson Primary Care Provider: Del Castorena Other Providers: Kj Jackson Other Interventions: Discharge Summary Assessment (RN) Last Done: 10/19/21 13:14 Supervising Physician Co-Signing Physician Notes I personally examined the patient and verified all hannah points of history and exam, discussed case, and agree with decision making with Anupama Hilliard PAC Feeling better and up to going home Vitals noted, no distress, breathing unlabored, 95% on room air. COVID-19now improved, stable for home. Otherwise as above Coding Level of Care Code D/C DAY MANAGEMENT >30 MINS Diagnoses Pneumonia J18.9 Hypertension I10 Obesity E66.9 COVID-19 U07.1 Acute dyspnea R06.00
[2021-10-20] MEDS ORDERED: lisinopril 20 MG TAB PO SCH (09:00)
== END 2021-10-19 13:50 | disposition home or self-care (01) | DRG 177 ==
LOC: ED 06:32 → 2S 09:30 → SUATTDRO 09:30 → 2S 09:58